=== PATIENT | female | born 1955 | race Caucasian/White ===

== ENCOUNTER 2022-12-14 21:54 | Emergency (ER) | payer MEDICARE, SELFPAY ==
--- NOTE | 2022-12-14 | ECG_ITS ---
Test Reason : CHEST PAIN Blood Pressure : / mmHG Vent. Rate : 074 BPM Atrial Rate : 074 BPM P-R Int : 164 ms QRS Dur : 086 ms QT Int : 410 ms P-R-T Axes : 009 -32 031 degrees QTc Int : 455 ms Normal sinus rhythm Left axis deviation Borderline ECG When compared with ECG of 06-JUL-2012 16:46, No significant change was found Referred By: Generic ED Physician Electronically Signed By:LACI SCOTT
--- NOTE | ~2022-12-14 | CT_ITS ---
EXAMINATION: CTA CHEST, ABDOMEN AND PELVIS CLINICAL INFORMATION: Reason for Exam ? Dissection COMPARISON: No pertinent prior studies are available for comparison. TECHNIQUE: Multidetector volumetric imaging was performed from the thoracic inlet through the pubic symphysis both before as well as following administration of 85 mL of Omnipaque 350. Sagittal and coronal reformatted images were obtained on the technologist's workstation. Additional 2-D coronal and sagittal reformatted images and axial 3-D maximum intensity projection MIP images are generated on the CT workstation. This CT examination was performed using dose optimization techniques as appropriate, variously including the following: *Automated exposure control *Adjustment of mA and/or kV according to patient size (this includes techniques or standardized protocols for targeted exams where dose is matched to indication/reason for exam; i.e. extremities or head) *Use of iterative reconstruction technique DLP: 708 mGy-cm VASCULAR FINDINGS: The thoracic aorta demonstrates mild calcific plaque without aneurysm, dissection or intramural hematoma. Normal three-vessel branching pattern of the arch is seen with widely patent great vessels. Although not carried out for evaluation of the pulmonary arteries or pulmonary veins, no abnormalities are seen. The abdominal aorta and visualized iliofemoral vessels all are unremarkable. The celiac SMA and JUAN are all widely patent. There are single renal arteries present bilaterally which are widely patent. NONVASCULAR FINDINGS: CHEST: Lung: There is a triangular opacity seen adjacent to the minor fissure in the right middle lobe consistent with a fissural lymph node (7:225). The lungs are otherwise clear without focal opacity or nodule. Mediastinum: The mediastinum is normal. The central vascular structures are unremarkable. No hilar or mediastinal lymphadenopathy. Coronary Artery Calcification: None visualized on this study. Pericardium/Pleura: No significant effusion. No pleural mass or thickening. Chest Wall/Axilla: Unremarkable ABDOMEN/PELVIS: Peritoneal Space: No significant free air or free fluid identified. Liver, Gallbladder, Biliary Tree: The liver is enlarged measuring 18.2 cm in cephalocaudad dimension. Multiple benign cysts are present the largest measuring about 14 cm. No focal hepatic lesion or biliary ductal dilatation is present. The gallbladder is unremarkable with no evidence of radiopaque gallstones, gallbladder wall thickening, or obvious pericholecystic inflammatory changes. Pancreas: Unremarkable Spleen: Unremarkable Adrenal Glands: Unremarkable Kidneys and Ureters: The kidneys are normal in size, shape, and attenuation. A Bosniak class I simple cyst is present in the right kidney at the upper pole with an additional smaller cyst present medially. These need no additional imaging or follow-up. No worrisome solid renal masses are seen. No hydronephrosis, hydroureter, or calculi seen. No perinephric stranding. Bladder: Unremarkable Gastrointestinal Tract: The small and large bowel are unremarkable. The appendix is unremarkable. Abdominal Wall: No significant hernia is appreciated. Lymph Nodes: No lymphadenopathy. PELVIC VISCERA: Normal anteverted uterus. There is a 4.5 cm benign simple ovarian cyst on the right. OSSEUS STRUCTURES: Mild degenerative changes are noted in the spine most marked at L5-S1. There is mild grade 1 anterolisthesis of L4 upon L5 . No bony destructive lesions are seen. CT/CT angio abdomen pelvis IMPRESSION: 1. No evidence of aortic dissection. 2. 4.5 cm simple appearing cyst. Given the patient's age, a follow-up pelvic ultrasound is recommended in 6-12 months. 3. Incidental note made of an enlarged liver with multiple benign cysts and degenerative changes in the spine. Fleischner guidelines were followed.
[2022-12-14 22:05] VITALS: BP 176/74; PULSE 65; RESP 18; TEMP 36.3; O2SAT 99; BMI 34.1
--- NOTE | 2022-12-14 22:26 | MHC.EDTECH ---
PT EKG DONE AND WAS READ BY PROVIDER ,BLOOD DRAWN AND SENT TO LAB ,PT WAS BROUGHT BACK TO ROOM 6 ,PT AT BEDSIDE .
[2022-12-14 22:28] LABS: MANUAL DIFF FLAG NO
[2022-12-14 22:29] LABS: Basophils Percent Auto 0.6 % (0-2); Eosinophils Absolute Auto 0.2 X10*3/uL (0.0-0.4); Eosinophils Percent Auto 4.2 % (0-4); Hematocrit 42.1 % (37.0-47.0); Hemoglobin 14.2 g/dl (12.0-16.0); Imm Gran Abs Auto 0.01 X10*3/uL (0.00-0.03); Imm Gran Pct Auto 0.2 % (0.0-0.4); Lymphocytes Absolute Auto 1.5 X10*3/uL (1.2-4.9); Lymphocytes Percent Auto 31.9 % (20-40); Mean Corpuscular HGB Conc 33.7 g/dl (31.0-35.0); Mean Corpuscular Hemoglobin 29.8 pg (27.0-33.0); Mean Corpuscular Volume 88.4 fL (80.0-98.0); Mean Platelet Volume 9.7 fL (9.4-12.3); Monocytes Absolute Auto 0.6 X10*3/uL (0.1-1.2); Monocytes Percent Auto 12.5 % (2-11); Neutrophils Absolute Auto 2.4 x10*3/uL (2.0-8.3); Neutrophils Percent Auto 50.6 % (45-73); Platelet Count 209 X10*3/uL (160-400); Red Blood Count 4.76 X10*6/uL (4.20-5.50); Red Cell Distribution Width 12.7 % (11.0-16.0); White Blood Count 4.7 X10*3/uL (4.8-10.8)
[2022-12-14 22:38] VITALS: BP 178/89; PULSE 66; RESP 11; O2SAT 98
[2022-12-14 22:53] LABS: Alanine Aminotransferase 14 U/L (0-31); Albumin Level 4.4 g/dL (3.5-5.0); Alkaline Phosphatase 45 U/L (39-117); Anion Gap 14 (12-20); Aspartate Amino Transferase 17 U/L (5-31); Bilirubin Total 0.4 mg/dL (0.0-1.0); Blood Urea Nitrogen 21 mg/dL (9-16); Calcium 9.3 mg/dL (8.4-10.2); Carbon Dioxide 24 mmol/L (22-29); Chloride 107 mmol/L (96-108); Creatinine Clr Calc Pharmacy 69.3; Estimated Glomerular Filt Rate > 60; Glucose Random 96 mg/dL (60-115); Potassium 4.3 mmol/L (3.3-5.1); Sodium 141 mmol/L (135-145); Total Protein 6.5 g/dL (6.5-8.0)
--- NOTE | 2022-12-14 22:54 | ED_ITS ---
HPI - Chest Pain General Chief Complaint: Chest Pain Stated Complaint: chect/ neck pain Time Seen by Provider: 12/14/22 22:25 History of Present Illness HPI narrative: Patient is a 67-year-old female presents today with having chest pain radiating to the back rating to the stomach area. Patient denies any history of diabetes, hypertension, high cholesterol, smoking, LA. Patient from home. No fever no chills no coughing or congestion or SOB symptoms. No diaphoresis. No history of blood clots. No history of leg swelling. Patient not on any hormonal replacement. She is from home. No recent travel. Related Data Home Medications Medication Instructions Recorded Confirmed escitalopram oxalate 5 mg tablet 5 mg PO DAILY 09/05/22 Allergies Allergy/AdvReac Type Severity Reaction Status Date / Time No Known Allergies Allergy Verified 12/14/22 22:05 Review of Systems Review of Systems: Positive chest pain Yes all other systems are reviewed and are negative PMFSH Past Medical History Attestation statement: The following information was validated with the patient. Social History Social History Advance Directives: No Advance Directives Information Provided: No Physical Exam Vital Signs: Vital Signs: Last Vital Signs Temp 97.4 F 12/14/22 23:50 Pulse 62 12/14/22 23:50 Resp 18 12/14/22 23:50 BP 145/66 H 12/14/22 23:50 Pulse Ox 98 12/14/22 23:50 O2 Del Method Room Air 12/14/22 22:38 BMI result Body Mass Index 34.1 Appearance: Alert. Oriented X3. No acute distress. Eyes: Pupils equal, round and reactive to light. ENT: Pharynx normal. Neck: Normal inspection. Neck supple. No lymph nodes noted. No crepitus CVS: Normal heart rate and rhythm. Pulses normal. Normal S1 and S2 Respiratory: No respiratory distress. Breath sounds normal. No Wheezing. No rales Abdomen: Soft and nontender. No rigidity. No distention. good BS x4 Skin: Skin warm and dry. Normal skin color. Normal skin turgor. Extremities: No lower extremity edema. Neurovascular intact to all extremities. No Lacerations. No Rash Neuro: Oriented X 3. No motor deficit. No sensory deficit. Moving all extermities. No slurred speech Medications Administered Discontinued Medications Generic Name Dose Route Start Last Admin Trade Name Yordy PRN Reason Stop Dose Admin Iohexol 85 ml 12/14/22 23:34 12/14/22 23:35 Iohexol 350 Mg/Ml 100 Ml Infus..Btl IV 12/14/22 23:35 85 ml ONCE ONE Administration Medical Decision Making Medical Decision Making [facility] Narrative: Patient complaining of chest pain going to the back. Elevated blood pressure here in the emergency department. It is sharp. CT scan of the chest abdomen pelvis was negative for any fracture no evidence for pneumonia pneumothorax no evidence for dissection. Patient had 2 sets of cardiac enzymes done. There were both negative. My interpretation patient's EKG showed a sinus pattern heart rate is 75 WA QRS QT within normal limits there is T-wave inversion in the inferior leads noted. She is well-appearing. The chest pain is atypical. Her EKG shows some abnormality she has no significant cardiac risk factors her heart score is a 3. Will have patient follow up with Cardiology on an outpatient basis. CTA did show an ovarian cyst which will need to be followed up. She is in stable condition. Differential Diagnosis ACS, dissection, pneumonia, pneumothorax Lab Data [facility] Lab Attestation statement: I reviewed the patient's lab results. 12/14/22 22:23 12/14/22 22:23 Labs: Lab Results 12/14/22 12/14/22 12/14/22 Range/Units 22:23 22:23 22:23 WBC 4.7 L (4.8-10.8) X10*3/uL RBC 4.76 (4.20-5.50) X10*6/uL Hgb 14.2 (12.0-16.0) g/dl Hct 42.1 (37.0-47.0) % MCV 88.4 (80.0-98.0) fL MCH 29.8 (27.0-33.0) pg MCHC 33.7 (31.0-35.0) g/dl RDW 12.7 (11.0-16.0) % Plt Count 209 (160-400) X10*3/uL MPV 9.7 (9.4-12.3) fL Immature Gran % (Auto) 0.2 (0.0-0.4) % Neut % (Auto) 50.6 (45-73) % Lymph % (Auto) 31.9 (20-40) % Logan % (Auto) 12.5 H (2-11) % Eos % (Auto) 4.2 H (0-4) % Baso % (Auto) 0.6 (0-2) % Lymph # (Auto) 1.5 (1.2-4.9) X10*3/uL Logan # (Auto) 0.6 (0.1-1.2) X10*3/uL Eos # (Auto) 0.2 (0.0-0.4) X10*3/uL Baso # (Auto) 0.0 (0.0-0.2) X10*3/uL Abs Immat Gran (auto) 0.01 (0.00-0.03) X10*3/uL Absolute Neuts (auto) 2.4 (2.0-8.3) x10*3/uL Absolute Nucleated RBC 0.000 (0.0-0.012) X10*3/uL Nucleated RBC % (auto) 0.0 (0.0-0.2) /100WBC Sodium 141 (135-145) mmol/L Potassium 4.3 (3.3-5.1) mmol/L Chloride 107 (96-108) mmol/L Carbon Dioxide 24 (22-29) mmol/L Anion Gap 14 (12-20) BUN 21 H (9-16) mg/dL Creatinine 0.90 (0.5-1.4) mg/dL Estim Creat Clear Calc 69.3 Estimated GFR > 60 Random Glucose 96 (60-115) mg/dL Calcium 9.3 (8.4-10.2) mg/dL Total Bilirubin 0.4 (0.0-1.0) mg/dL AST 17 (5-31) U/L ALT 14 (0-31) U/L Alkaline Phosphatase 45 (39-117) U/L Troponin I High Sens 3.5 (<3.5-17.0) ng/L Total Protein 6.5 (6.5-8.0) g/dL Albumin 4.4 (3.5-5.0) g/dL Lipase 35 (8-78) U/L Urine Color Urine Appearance Urine pH (5.0-9.0) Ur Specific Sunburst (1.005-1.025) Urine Protein (Neg-Trace) mg/dL Urine Glucose (UA) (Negative) mg/dL Urine Ketones (Negative) mg/dL Urine Blood (Negative) Urine Nitrite (Negative) Ur Leukocyte Esterase (Negative) Urine RBC (0-2) /HPF Urine WBC (0-5) /HPF Ur Squamous Epith Cells (0-2) /HPF Calcium Oxalate Crystal Urine Bacteria (None Seen) Hyaline Casts (0-2) /LPF 12/15/22 12/15/22 Range/Units 00:42 00:42 WBC (4.8-10.8) X10*3/uL RBC (4.20-5.50) X10*6/uL Hgb (12.0-16.0) g/dl Hct (37.0-47.0) % MCV (80.0-98.0) fL MCH (27.0-33.0) pg MCHC (31.0-35.0) g/dl RDW (11.0-16.0) % Plt Count (160-400) X10*3/uL MPV (9.4-12.3) fL Immature Gran % (Auto) (0.0-0.4) % Neut % (Auto) (45-73) % Lymph % (Auto) (20-40) % Logan % (Auto) (2-11) % Eos % (Auto) (0-4) % Baso % (Auto) (0-2) % Lymph # (Auto) (1.2-4.9) X10*3/uL Logan # (Auto) (0.1-1.2) X10*3/uL Eos # (Auto) (0.0-0.4) X10*3/uL Baso # (Auto) (0.0-0.2) X10*3/uL Abs Immat Gran (auto) (0.00-0.03) X10*3/uL Absolute Neuts (auto) (2.0-8.3) x10*3/uL Absolute Nucleated RBC (0.0-0.012) X10*3/uL Nucleated RBC % (auto) (0.0-0.2) /100WBC Sodium (135-145) mmol/L Potassium (3.3-5.1) mmol/L Chloride (96-108) mmol/L Carbon Dioxide (22-29) mmol/L Anion Gap (12-20) BUN (9-16) mg/dL Creatinine (0.5-1.4) mg/dL Estim Creat Clear Calc Estimated GFR Random Glucose (60-115) mg/dL Calcium (8.4-10.2) mg/dL Total Bilirubin (0.0-1.0) mg/dL AST (5-31) U/L ALT (0-31) U/L Alkaline Phosphatase (39-117) U/L Troponin I High Sens 3.4 (<3.5-17.0) ng/L Total Protein (6.5-8.0) g/dL Albumin (3.5-5.0) g/dL Lipase (8-78) U/L Urine Color Yellow Urine Appearance Clear Urine pH 5.5 (5.0-9.0) Ur Specific Sunburst 1.020 (1.005-1.025) Urine Protein Negative (Neg-Trace) mg/dL Urine Glucose (UA) Negative (Negative) mg/dL Urine Ketones Negative (Negative) mg/dL Urine Blood Negative (Negative) Urine Nitrite Negative (Negative) Ur Leukocyte Esterase Small (1+) H (Negative) Urine RBC 0-2 (0-2) /HPF Urine WBC 0-5 (0-5) /HPF Ur Squamous Epith Cells 0-2 (0-2) /HPF Calcium Oxalate Crystal Present Urine Bacteria None Seen (None Seen) Hyaline Casts 0-2 (0-2) /LPF Independent Interpretation I performed an independent interpretation of an: EKG Interpretation: Sinus heart rate is 75 WA QRS QTC within normal limits there is T-wave inversions over the inferior leads there is no acute ST segment elevation noted. Independent Historian Clinical information obtained from an independent historian. History obtained from or confirmed by: Spouse Discharge Plan Discharge Clinical Impression: Chest pain Patient Disposition: Home, Self-Care Instructions: Chest Pain (DC) Additional Instructions: Ovarian cyst was noted. Please follow-up with your surgical scrub technician on an outpatient basis Prescriptions: No Action escitalopram oxalate 5 mg tablet 5 mg PO DAILY Referrals: Med Maynard MD [Primary Care Provider] - Dk Mcclendon MD [Physician] - 12/17/22
[2022-12-14 23:00] LABS: Troponin-I High Sensitivity 3.5 ng/L (<3.5-17.0)
[2022-12-14 23:03] LABS: Lipase 35 U/L (8-78)
[2022-12-14] MEDS: iohexoL 350 MG/ML 100 ML INFUS..BTL 85 ML IV (23:35)
[2022-12-14 23:50] VITALS: BP 145/66; PULSE 62; RESP 18; TEMP 36.3; O2SAT 98
[2022-12-15 00:50] LABS: Appearance Urine Clear; Color Urine Yellow; Glucose Urine UA Negative (Negative); Leukocyte Esterase Urine Small (1+) (Negative); Nitrite Urine Negative (Negative); PH 5.5 (5.0-9.0); UMIC TRIGGER UACC YES; Urine Blood Negative (Negative); Urine Ketones Negative (Negative); Urine Protein Negative (Neg-Trace)
[2022-12-15 01:06] LABS: Bacteria Urine None Seen (None Seen); Calcium Oxalate Crystals Urine Present; Hyaline Casts Urine 0-2 /LPF (0-2); RBC Urine 0-2 /HPF (0-2); Squamous Epithelial Cell Urine 0-2 /HPF (0-2); UACC Culture Trigger YES; WBC Urine 0-5 /HPF (0-5)
[2022-12-15 01:10] LABS: Troponin-I High Sensitivity 3.4 ng/L (<3.5-17.0)
== END 2022-12-15 01:49 | disposition home or self-care (01) ==
PROVIDERS: Emergency Provider Emergency Medicine Emergency Medical Services; PCP Internal Medicine
DX: R07.89 Other chest pain (principal); M54.2 Cervicalgia; Z79.899 Other long term (current) drug therapy
CPT/HCPCS: 36415; 71275; 74174; 80053; 81001; 83690; 84484; 85025; 87086; 93005; 99283; Q9967

== ENCOUNTER 2025-06-22 08:54 | Outpatient (AMB) | payer MEDICARE, SELFPAY ==
--- OUTSIDE RECORDS SUMMARY | 2024-09-19 05:00 | XMS_ITS ---
Author Organization [facility], [place] Address [address] [place] [address] Care Team Providers Care Solar Project Manager Name Role Phone Migration, Provider Unavailable Unavailable REASON FOR VISIT CPX Encounters Encounter Location Date Provider Diagnosis [facility], [address] [place] [phone] 09/19/2024 Provider Migration Plan Of Treatment Next Appt Details Provider Name:Carol Centeno, 07/14/2025 11:00:00 AM, [address] [place] [address], Suite [facility], [place], [address], [phone] Progress Notes * JUAN J HAYESDOB:1955 (70 yo F)Acc No.[id number]:09/19/2024 Progress Notes Patient: Jess JUAN J TURCIOS Provider: Michel Franco :1955 A ge:69 Y S ex:Female Date:09/19/2024 Address: [id number] Subjective: * Chief Complaints: * C PX * Ocular Surgical History: Objective: Vision Examination: * Electronic signature of Prov ider Migration on 06/22/2025 at 09:26 AM EDT Sign off status: Pending * Provider: Michel arriaga Migration Date: Generated for Keshav yoo/Negro/eTransmitting on: 09:26 AM EDT
--- OUTSIDE RECORDS SUMMARY | 2025-06-05 06:30 | XMS_ITS ---
Author Organization [facility], [place] Address [address] [place] [address] Care Team Providers Care Tool And Die Engineer Name Role Phone Carol Centeno Unavailable [phone] Allergies No Known Allergies REASON FOR VISIT My insurance and Francesca keep telling me that I'm due for a physical Medications Medication SIG (Take, Route, Frequency, Duration) Notes Start Date End Date Status Macrobid 100 MG Capsule 1 capsule with f ood Orally every 12 hrs Not-Taking Lexapro 5 MG Tablet 1 tablet Orally Once a day Not-Taking Gabapentin 300 MG Capsule 1 capsule Orally Once a day Not-Taking Ativan 0.5 MG Tablet 1 tablet at bedtime as needed Orally Once a day Not-Garth ing Social History Section Notes: Alcohol- Occasionally No drug, alcohol or caffeine Vital Signs Blood pressure systolic 160 mm Hg 06/05/20 25 Blood pressure diastolic 88 mm Hg 025 Heart Rate 69 /min 06/05/2025 Respiratory Rate 19 /min 06/05/2025 Weight 221 lbs 06/05/2025 Oximetry 98 % 06/05/2025 Weight-kg 100.24 kg 06/05/2025 Encounters Encounter Location Date Provider Diagnosis [facility] [place] [address] [facility] [address] [place] [address] 06/05/2025 Carol Guillermojazzy Palpitations R00.2 Assessments Encounter Date Diagnosis (ICD Code) Assessment Notes Treatment Notes Treatment Clinical Notes Section Notes 06/05/2025 Palpitations (ICD-10 - R00.2) EKG done here and notes NSR w/ Left axis but otherwise normal EKG. Plan Of Treatment Treatment Notes Assessment Notes Palpitations EKG done here and no harsha NSR w/ Left axis but otherwise normal EKG. Next Appt Details Provider Name:Angi Matson/24/2025 11:00:00 AM, [address] [facility], [address], [place], [address], [phone] History and Physical Notes * HPI (History of Present Illness) Category Sub-Category Detail Notes Category Not es General Pt is a 70yo female w/ past medical hx of shingles and depression (she notes both have resolved) who presents today for an annual Medical history and physical. Please note the following: - Patient reports experiencing occasional jitters and palpitations. - Right-sided pain attributed to past shingles, lasting five years. - Occasional involuntary tremors noted when doing physical activities. - Concern about neurological symptoms such as head shaking noticed by children. - History of large cyst removal from the liver. - Reports of tight muscles causing discomfort. - Concerns about palpitations and family history of similar issues without the presence of Parkinson's. - Used to take Lexapro due to anxiety related to mother's . - History of ulcerative colitis currently in remission. - Not currently taking any medications. - No current OBGYN visits. - Cataract surgery scheduled next month. - Last mammogram taken a few months ago. - Recently had a colonoscopy. - EKG done here and notes NSR w/ Left axis but otherwise normal EKG. She c/o B/L hand and head tremors and mid-back pain bilaterally. Pt denies fever, chills, dizziness, GOLDSTEIN, SOB, cough, chest pain and abdominal pain/sx. Objective: - BP: 160/88 mmHg. - HR: 69 bpm. - Bilateral eardrums clear with no signs of infection. - Heart and lung sounds normal with no added sounds. - Abdomen soft, non-tender during palpation. - No reported or observed back pain on examination. - Normal strength and movement in arms and legs. - No signs of anemia, diabetes, or thyroid issues according to recent labs. Assessment: - Essential tremor - Palpitations - Right-sided postherpetic neuralgia - History of ulcerative colitis (in remission) - Anxiety (currently without medication) - Hypertension Plan: - Refer to Neurology for assessment of tremors and related neurological symptoms. - Refer to Cardiology for evaluation of palpitations and possible medication. - Schedule EKG to assess heart function before the patient leaves. - Recommend wearing looser clothing to help alleviate right-sided pain. - Obtain recent mammogram and colonoscopy results. - Plan for cataract surgery on previously scheduled date. - Blood work to include checks for diabetes, liver, kidney function, thyroid, anemia, cholesterol, vitamin B12 and D, and magnesium levels. - Schedule follow-up appointment in one month for pre-op. - Discuss possible pain management options for postherpetic neuralgia if symptoms worsen. Progress Notes * JUAN J HAYESDOB:1955 (70 yo F)Acc No.[id number]:06/05/2025 Progress Notes Patient: JUAN J GREGG Provider: Whit Centeno :1955 A ge:70 Y S ex:Female Date:06/05/2025 Address: [id number] Subjective: * Chief Complaints: * My insurance and Francesca keep telling me that I'm due for a physical * HPI: G eneral: Pt is a 70yo female w/ past medical hx of shingles and depression (she notes both have resolved) who presents today for an annual Medical history and physical. Please note the following: - Patient reports experiencing occasional jitters and palpitations. - Right-sided pain attributed to past shingles, lasting five years. - Occasional involuntary tremors noted when doing physical activities. - Concern about neurological symptoms such as head shaking noticed by children. - History of large cyst removal from the liver. - Reports of tight muscles causing discomfort. - Concerns about palpitations and family history of similar issues without the presence of Parkinson's. - Used to take Lexapro due to anxiety related to mother's . - History of ulcerative colitis currently in remission. - Not currently taking any medications. - No current OBGYN visits. - Cataract surgery scheduled next month. - Last mammogram taken a few months ago. - Recently had a colonoscopy. - EKG done here and notes NSR w/ Left axis but otherwise normal EKG. She c/o B/L hand and head tremors and mid-back pain bilaterally. Pt denies fever, chills, dizziness, GOLDSTEIN, SOB, cough, chest pain and abdominal pain/sx. Objective: - BP: 160/88 mmHg. - HR: 69 bpm. - Bilateral eardrums clear with no signs of infection. - Heart and lung sounds normal with no added sounds. - Abdomen soft, non-tender during palpation. - No reported or observed back pain on examination. - Normal strength and movement in arms and legs. - No signs of anemia, diabetes, or thyroid issues according to recent labs. Assessment: - Essential tremor - Palpitations - Right-sided postherpetic neuralgia - History of ulcerative colitis (in remission) - Anxiety (currently without medication) - Hypertension Plan: - Refer to Neurology for assessment of tremors and related neurological symptoms. - Refer to Cardiology for evaluation of palpitations and possible medication. - Schedule EKG to assess heart function before the patient leaves. - Recommend wearing looser clothing to help alleviate right-sided pain. - Obtain recent mammogram and colonoscopy results. - Plan for cataract surgery on previously scheduled date. - Blood work to include checks for diabetes, liver, kidney function, thyroid, anemia, cholesterol, vitamin B12 and D, and magnesium levels. - Schedule follow-up appointment in one month for pre-op. - Discuss possible pain management options for postherpetic neuralgia if symptoms worsen. * Surgical History: knee surgery (both needs) cyst removal (liver) * Ocular Surgical History: * Family History: F ather: , diagnosed with Type 2 diabetes mellitus without complication, unspecified whether care home insulin use. M other: , diagnosed with Heart disease. 6 brother(s) - healthy. 3 son(s) , 2 daughter(s) - healthy. . Healthcare Proxy ( Kevin) Dad- Liver cancer Mom- Afib, pacemaker, CHD. * Social History: A lcohol- Occasionally No drug, alcohol or caffeine. * Medications: N ot-TakingMacrobid 100 MG Capsule 1 capsule with food Orally every 12 hrs Lexapro 5 MG Tablet 1 tablet Orally Once a day Gabapentin 300 MG Capsule 1 capsule Orally Once a day Ativan 0.5 MG Tablet 1 tablet at bedtime as needed Orally Once a day Not- Taking Macrobid 100 MG Capsule 1 capsule with food Orally every 12 hrs Not-Taking Lexapro 5 MG Tablet 1 tablet Orally Once a day Not-Taking Gabapentin 300 MG Capsule 1 capsule Orally Once a day Not-Taking Ativan 0.5 MG Tablet 1 tablet at bedtime as needed Orally Once a day * Allergies: N .K.D.A.yesAllergies Verified. Objective: * Vitals: B P:160/88mm Hg, HR:69/min, RR:19/min, Oxygen sat %:98%, Wt:221lbs, Wt-k.24 kg. Vision Examination: Assessment: * Assessment: 1. P alpitations - R00.2 (Primary) Plan: * Treatment: * Electronic signature of Arnaldo Centeno on 06/22/2025 at 09:27 AM EDT Sign off status: Pending * Provider: Whit Centeno Date: 0 06/05/2025 Generated for Keshav yoo/Negro/Adela on: 1 09:27 AM EDT
--- OUTSIDE RECORDS SUMMARY | 2025-06-09 12:30 | XMS_ITS ---
Author Organization [facility], [place] Address [address] [place] [address] Care Team Providers Care Junior Qa Analyst Name Role Phone Carol Centeno Unavailable [phone] REASON FOR VISIT abn labs Medications Medication SIG (Take, Route, Frequency, Duration) Notes Start Date End Date Status Ativan 0.5 MG Tablet 1 tablet at bedtime as needed Orally Once a day Not-Garth ing Gabapentin 300 MG Capsule 1 capsule Orally Once a day Not-Taking Lexapro 5 MG Tablet 1 tablet Orally Once a day Not-Taking Macrobid 100 MG Capsule 1 capsule with f ood Orally every 12 hrs Not-Taking Encounters Encounter Location Date Provider Diagnosis [facility], [address] [place] [phone] 06/09/2025 Carolher Centeno Plan Of Treatment Next Appt Details Provider Name:Carol Centeno, 07/14/2025 11:00:00 AM, [address] [place] [address], Suite [facility], [place], [address], [phone] Progress Notes * JUAN J HAYESDOB:1955 (70 yo F)Acc No.[id number]:06/09/2025 Patient: Jess JUAN J TURCIOS Provider: Whit Centeno :1955 A ge:70 Y S ex:Female Date:06/09/2025 Address:[id number] Subjective: * Chief Complaints: * A bn labs * Medications: N ot-TakingMacrobid 100 MG Capsule [...] as needed Orally Once a day * Electronic signature of Arnaldo her Centeno on 06/22/2025 at 09:26 AM EDT Sign off status: Pending * Provider: Whit Centeno Date: 0 06/09/2025 Generated for Keshav yoo/Negro/Adela on: 1 09:26 AM EDT
--- NOTE | 2025-06-22 08:58 | AM.OFFWIN_ITS ---
Intake Vital Signs 06/22/25 08:59 Height 5 ft 5 in Weight 220 lb BMI 36.6 BP 162/86 H Blood Pressure Location Lt brachial Position Sitting Pulse 70 Pulse Source Pulse Oximeter Temp 98.3 F Temp Source Oral Pulse Oximetry (%) 98 Oxygen Delivery Method Room Air Intake Visit Reasons: EP-rt foot pain & swollen Intake Note: pt presents with right foot swelling and pain for 2 days- denies injury Allergies No Known Allergies Allergy (Verified 06/22/25 09:00) Do you need a note to return to daycare/school/sports/work: No HPI HPI Comments History of Present Illness Details History of Present Illness - The patient is a 70-year-old female pr esenting with foot pain and numbness. - Reports inability to put pressure on h er right foot, with pain initially localized to the heel and later radiating to the side, accompanied by numbness on the top of the foot. - Chronic numbness on the bottom of her feet is noted. - Pain is worse with weight bearing and standing on the right heel. - Her foot felt worse walking barefoot a nd better in a shoe. - History of two knee replacements with nerve block injections causing previous numbness in legs. - No prior x-ray of the foot to rule out a bone spur, suspected to cause pain and inability to flex the foot. - She has no recent trauma or falls. - She has no redness, warmth, wounds, an kle pain, or calf pain. Physical Exam General: Cooperative, healthy appearing, comfortable, no acute distress and well developed Orientation: Patient oriented x3 Respiratory: Normal respiratory effort and able to speak in complete sentences. Clear to auscultation bilaterally Cardiovascular: Regular rate and rhythm. Normal S1 and S2 Skin: No rashes or lesions noted Neuro: Sensation is intact. Extremities: Normal to inspection. No redness or swelling observed. FROM of the right ankle and digits on the foot. No TTP of the Achilles on the right, plantar fascia, or forefoot. TTP of the calcaneous on the right. Patient was informed and verbally consented to the use of an ambient scribe for clinic note documentation during this visit. Review of Systems Const All systems reviewed & are unremarkable except as noted in HPI and below Physical Exam Vital Signs: Last Vital Signs Temp 98.3 F 06/22/25 08:59 Pulse 70 06/22/25 08:59 BP 162/86 H 10/02/25 08:59 Pulse Ox 98 06/22/25 08:59 Oxygen Delivery Method Room Air 06/22/25 08:59 BMI result Body Mass Index 36.6 Results Reviewed Results Reviewed: Reviewed the x-ray in the office FINDINGS: No acute cortical disruption. There is a medial deviation and likely flexed position of the fourth and fifth toes. Small plantar calcaneal spur. No lytic or blastic lesions. No joint effusion. No metallic or radiopaque foreign body. No subcutaneous emphysema. XR/XR foot RT min 3V IMPRESSION: Hammertoe deformities, fourth and fifth toes. Assessment & Plan Assessment & Plan (1) Right foot pain: Code(s): M79.671 - Pain in right foot Plan Differential diagnosis includes neuropathy, bone spur, arthritis, or tendinitis. Unlikely gout plan - Plan to obtain an x-ray of the foot to evaluate for bone spur or other structural abnormalities. - Consideration of supportive footwear to alleviate symptoms. - rest and elevate the foot - wear the supportive shoe - pt is requesting a uric acid to r/o gout - motrin as needed for pain - will need a referral to ortho or podiatry - follow up with PCP Orders: Orders Uric Acid Today M79.671 - Pain in right foot XR foot RT min 3V Today M79.671 - Pain in right foot Coding Level of Care Code Est Pt Level 4 (52270) Diagnoses Right foot pain M79.671
[2025-06-22 08:59] VITALS: BP 162/86; PULSE 70; TEMP 36.8; O2SAT 98; BMI 36.6
--- OUTSIDE RECORDS SUMMARY | 2025-06-22 09:26 | XMS_ITS ---
Author Name [facility] Organization Unknown Encounters Encounter Type Encounter Reason Primary Diagnosis Location Date Ambulatory [facility] 07/19/2024 Care Team Organization Name Specialty Phone Email Start Date End Da te [facility] 01/14/2025 [facility] 04/07/2024 [facility] 02/27/2023
--- OUTSIDE RECORDS SUMMARY | 2025-06-22 09:27 | XMS_ITS | Patient Health Record ---
Author Organization [facility] [place] Address [address] [place] [address] Care Team Providers Care Commercial Installer Name Role Phone Migration, Provider Unavailable Unavailable Carol Centeno Unavailable [phone] Allergies No Known Allergies Reason For Referral No Information Medications Medication SIG (Take, Route, Frequency, Duration) [...] f ood Orally every 12 hrs Not-Taking Social History Section Notes: Alcohol- Occasionally No drug, alcohol or caffeine Vital Signs Heart Rate 69 /min 06/05/2025 Respiratory Rate 19 /min 06/05/2025 Oximetry 98 % 06/05/2025 Blood pressure diastolic 88 mm Hg 06/05/2025 Weight-kg 100.24 kg 06/05/2025 Blood pressure systolic 160 mm Hg 06/05/2025 Weight 221 lbs 06/05/2025 Encounters Encounter Location Date Provider Diagnosis [facility], [address] [address] 09/19/2024 Provider Migration [facility], [address] [address] 06/05/2025 Carol Centeno Palpitations R00.2 [facility], [address] [address] 06/09/2025 Carol Centeno Assessments Encounter Date Diagnosis (ICD Code) Assessment Notes Treatment Notes Treatment Clinical Notes Section Notes 06/05/2025 Palpitations (ICD-10 - R00.2) EKG done here and notes NSR w/ Left axis but otherwise normal EKG. Plan Of Treatment Next Appt Details Provider Name:Carol Centeno, 07/14/2025 11:00:00 AM, [address], [address], [place], [address], [phone] Insurance Providers Payer Name Payer Address Payer Phone Subscriber Number Group Number Insured Name Patient Relationship to Insured Coverage Start Date Coverage End Date [employer] [address] [place] [address] [id number] JUAN J HAYES Self - patient is the insured [employer] [address] [place] [address] [id number] JUAN J HAYES Self - patient is the insured Medical (General) History Surgical History Surgery Date(Month/Year) knee surgery (both needs) cyst removal (liver)
--- OUTSIDE RECORDS SUMMARY | 2025-06-22 09:27 | XMS_ITS | Clinical Summary ---
Author Organization [facility] [address] [facility] Address [address] [place] [address] Phone Care Team Providers Care Talent Program Manager Name Role Phone Isac Maynard MD Primary Care Provider [phone] Allergies No known active allergies Medications No known medications Surgical History Surgery Date Site/Laterality Comments SECTION PROCEDURE: [place] DELIVERY ONLY Medical History Medical History Date Comments Ulcerative (chronic) enteroc olitis ([facility] V24, [facility] V28) 03/11/2007 DX:Ulcerative (chronic) ent erocolitis ([facility]); COMMENT: follows with Dr. foster regularly Family History Medical History Relation Name Comments Breast cancer Cousin Breast cancer Father's Sister 1 Breast cancer Father's Sister 2 Breast cancer Father's Sister 3 Relation Name Status Comments Cousin Alive Father's Sister 1 Alive Father's Sister 2 Alive Father's Sister 3 Alive Social History Tobacco Use Types Packs/Day Years Used Date Smoking Tobacco: Former Cigarettes Q uit: 01/15/1983 Alcohol Use Standard Drinks/Week Comments Not Currently 0 (1 standard drink = 0.6 oz pur e alcohol) Interpersonal Safety Answer Date Record ed Physical Abuse Unrecognized value 11/17/2024 Verbal Abuse Unrecognized value 11/17/2024 Comments No Sex and Gender Information Value Date Recorded Sex Assigned at Female 11/16/2024 12:17 PM EST Legal Sex Female 7:41 AM EST Gender Identity Female 11/16/2024 11:27 AM EST Sexual Orientation Choose not to disclose 2024 9:05 AM EST Obstetrics History Para Term AB IAB SAB Ectopic Multiple Livin g Live Births 5 Last Filed Vital Signs Vital Sign Reading Time Taken Comments Blood Pressure 145/84 11/17/2024 11:07 AM EST Pulse 69 11/17/2024 11:07 AM EST Temperature 36.7 C (98 F) 11/17/2024 9:45 AM EST Respiratory Rate 16 11/17/2024 11:07 AM EST Oxygen Saturation 100% 11/17/2024 11:07 AM EST Inhaled Oxygen Concentration - - Weight 95.3 kg (210 lb) 02/28/2025 1:03 PM EDT Height 165.1 cm (5' 5 ) 02/28/2025 1:03 PM EDT Body Mass Index 34.95 02/28/2025 1:03 PM EDT Plan of Treatment Health Maintenance Due Date Last Done Comments Diabetes: Annual Foot Exam 01/31/1966 Diabetes: Annual Retina Eye Exam 01/31/1966 DTaP,Tdap,and Td Vaccines (1 - Tdap) 01/31/1975 Hepatitis A Vaccines (1 of 2 - Risk 2-dose series) 01/31/1975 Pneumococcal Vaccine: 50+ Years (1 of 2 - PCV) 01/31/1975 Zoster Vaccines (1 of 2) 01/31/2006 Hepatitis B Vaccines (1 of 3 - Risk 3-dose series) 2016 RSV Immunization Adult Patients (1 - Risk 60-74 years 1-dose series) 2016 Hepatitis C Screening 08/24/2022 Medicare Annual Wellness Visit 08/24/2022 Social Influencers of Health Screening 08/24/2022 Depression Screening 09/21/2024 COVID-19 Vaccine ( season) 2025 02/02/2021, 01/12/2021 Influenza Vaccine (#1) 2025 06/07/2009 Diabetes: Annual Urine Albumin-Creatinine Ratio (uACR) 06/06/2025 Falls Risk Assessment 11/17/2025 11/17/2024 Diabetes: Blood Sugar Control Test (HGBA1C) 12/04/2025 06/06/2025 Diabetes: Annual GFR (Glomerular Filtration Rate) 06/06/2026 06/06/2025 Hypertension/CHF/CAD Annual BMP Blood Test 06/06/2026 06/06/2025 Breast Cancer Screening 02/28/2027 02/29/20 25, 10/13/2023, 10/07/2022, Additional history exists Cholesterol Screening (Lipid Panel) 06/06/2030 06/06/2025 Osteoporosis Screening (Bone Density Screening) 09/05/2031 09/05/2021, 07/07/2019 Colorectal Cancer Screening: Colonoscopy 11/17/2034 11/17/2024, 11/16/2024 HIB Vaccines Aged Out No longer eligi ble based on patient's age to complete this topic HPV Vaccines Aged Out No longer eligi ble based on patient's age to complete this topic IPV Vaccines Aged Out No longer eligi ble based on patient's age to complete this topic MMR Vaccines Aged Out No longer eligi ble based on patient's age to complete this topic Meningococcal ACWY Vaccine Aged Out N o longer eligible based on patient's age to complete this topic Meningococcal B Vaccine Aged Out No l onger eligible based on patient's age to complete this topic RSV Immunization Patients Under 20 months Aged Out No longer eligible based on patient's age to complete this topic Varicella Vaccines Aged Out No longer eligible based on patient's age to complete this topic Procedures Procedure Name Priority Date/Time Associated Diagnosis Comments RIOS URINE CULTURE TUBE Routine 06/06/2025 8:58 AM EDT Diabetes mellitus ([facility] V24, [facility] V28) Vitamin B12 deficiency anemia Encounter for general adult medical examination with abnormal findings Avitaminosis D Hyperlipidemia Magnesium deficiency Genitourinary symptoms Primary hypothyroidism URINALYSIS WITH REFLEX MICROSCOPIC AND CULTURE Routine 06/06/2025 8:58 AM EDT Diabetes mellitus ([facility] V24, [facility] V28) Vitamin B12 deficiency anemia Encounter for general adult medical examination with abnormal findings Avitaminosis D Hyperlipidemia Magnesium deficiency Genitourinary symptoms Primary hypothyroidism URINALYSIS WITH REFLEX MICROSCOPIC AND CULTURE Routine 06/06/2025 8:58 AM EDT Diabetes mellitus ([facility] V24, [facility] V28) Vitamin B12 deficiency anemia Encounter for general adult medical examination with abnormal findings Avitaminosis D Hyperlipidemia Magnesium deficiency Genitourinary symptoms Primary hypothyroidism CULTURE URINE Routine 06/06/2025 8:58 AM EDT Diabetes mellitus ([facility] V24, [facility] V28) Vitamin B12 deficiency anemia Encounter for general adult medical examination with abnormal findings Avitaminosis D Hyperlipidemia Magnesium deficiency Genitourinary symptoms Primary hypothyroidism VITAMIN D 25 HYDROXY Routine 06/06/2025 8:48 AM EDT Diabetes mellitus ([facility] V24, [facility] V28) Vitamin B12 deficiency anemia Encounter for general adult medical examination with abnormal findings Avitaminosis D Hyperlipidemia Magnesium deficiency Genitourinary symptoms Primary hypothyroidism THYROID STIMULATING HORMONE Routine 06/06/2025 8:48 AM EDT Diabetes mellitus ([facility] [place] V24, [facility] [place] [facility] V28) Vitamin B12 deficiency anemia Encounter for general adult medical examination with abnormal findings Avitaminosis D Hyperlipidemia Magnesium deficiency Genitourinary symptoms Primary hypothyroidism MAGNESIUM Routine 06/06/2025 8:48 AM EDT Diabetes mellitus ([facility] [place] V24, [facility] [place] V28) Vitamin B12 deficiency anemia Encounter for general adult medical examination with abnormal findings Avitaminosis D Hyperlipidemia Magnesium deficiency Genitourinary symptoms Primary hypothyroidism HEMOGLOBIN A1C Routine 06/06/2025 8:48 AM EDT Diabetes mellitus ([facility] [place] V24, [facility] [place] V28) Vitamin B12 deficiency anemia Encounter for general adult medical examination with abnormal findings Avitaminosis D Hyperlipidemia Magnesium deficiency Genitourinary symptoms Primary hypothyroidism VITAMIN B12 Routine 06/06/2025 8:48 AM EDT Diabetes mellitus ([facility] [place] V24, [facility] [place] V28) Vitamin B12 deficiency anemia Encounter for general adult medical examination with abnormal findings Avitaminosis D Hyperlipidemia Magnesium deficiency Genitourinary symptoms Primary hypothyroidism COMPLETE BLOOD COUNT Routine 06/06/2025 8:48 AM EDT Diabetes mellitus ([facility] [place] V24, [facility] [place] V28) Vitamin B12 deficiency anemia Encounter for general adult medical examination with abnormal findings Avitaminosis D Hyperlipidemia Magnesium deficiency Genitourinary symptoms Primary hypothyroidism THYROXINE FREE Routine 06/06/2025 8:48 AM EDT Diabetes mellitus ([facility] [place] V24, [facility] [place] V28) Vitamin B12 deficiency anemia Encounter for general adult medical examination with abnormal findings Avitaminosis D Hyperlipidemia Magnesium deficiency Genitourinary symptoms Primary hypothyroidism LIPID PANEL WITH REFLEX TO DIRECT LDL Routine 06/06/2025 8:48 AM EDT Diabetes mellitus ([facility] [place] V24, [facility] [place] V28) Vitamin B12 deficiency anemia Encounter for general adult medical examination with abnormal findings Avitaminosis D Hyperlipidemia Magnesium deficiency Genitourinary symptoms Primary hypothyroidism COMPREHENSIVE METABOLIC PANEL Routine 06/06/2025 8:48 AM EDT Diabetes mellitus ([facility] [place] V24, [facility] [place] V28) Vitamin B12 deficiency anemia Encounter for general adult medical examination with abnormal findings Avitaminosis D Hyperlipidemia Magnesium deficiency Genitourinary symptoms Primary hypothyroidism MG MAMMO DIGITAL SCREENING W JARETH BILAT Routine 02/28/2025 1:21 PM EDT Encounter for screening mammogram for breast cancer COLONOSCOPY Routine 11/17/2024 10:46 AM EST Personal history of other colon polyps SU DEXA AXIAL SKELETON Routine 09/05/2021 3:17 PM EST Asymptomatic menopausal state from Last 3 Months or Most Recently Relevant to Health Maintenance Results * (ABNORMAL) Urinalysis with reflex microscopic and culture (06/06/2025 8:58 AM EDT) Specific [place] Urine 1.018 1.003 - 1.030 LAB URINALYSIS - AUTOMATED METHOD 06/06/2025 9:28 AM T [facility] pH, Urine 6.5 5.0 - 8.0 pH LAB URINALYSIS - AUTOMATED METHOD 06/06/2025 9:28 AM [facility] Leukocytes, Urine Small(A) Negative LAB URINALYSIS - AUTOMATED METHOD 06/06/2025 9:28 AM [facility] Nitrite, Urine Negative Negative LAB URINALYSIS - AUTOMATED METHOD 06/06/2025 9:28 AM [facility] Protein, Urine Negative <=Trace mg/dL LAB URINALYSIS - AUTOMATED METHOD 06/06/2025 9:28 AM [facility] Glucose, Urine Negative Negative mg/dL LAB URINALYSIS - AUTOMATED METHOD 06/06/2025 9:28 AM [facility] Ketones, Urine Negative Negative mg/dL LAB URINALYSIS - AUTOMATED METHOD 06/06/2025 9:28 AM [facility] Urobilinogen, Urine 0.2 0.2 - 1.0 mg/dL LAB URINALYSIS - AUTOMATED METHOD 06/06/2025 9:28 AM [facility] Bilirubin, Urine Negative Negative LAB URINALYSIS - AUTOMATED METHOD 06/06/2025 9:28 AM [facility] Blood, Urine Negative Negative LAB URINALYSIS - AUTOMATED METHOD 06/06/2025 9:28 AM [facility] RBC, Urine 2.5 0 - 4 /HPF LAB URINALYSIS - AUTOMATED METHOD 06/06/2025 9:28 AM [facility] WBC, Urine 4.6(H) 0 - 4 /HPF LAB URINALYSIS - AUTOMATED METHOD 06/06/2025 9:28 AM [facility] Squamous Epithelial, Urine >100(H) 0 - 60 /LPF LAB URINALYSIS - AUTOMATED METHOD 06/06/2025 9:28 AM [facility] Bacteria, Urine Few(A) Negative /HPF LAB URINALYSIS - AUTOMATED METHOD 06/06/2025 9:28 AM [facility] Hyaline Casts, Urine 3.2(H) 0 - 3 /LPF LAB URINALYSIS - AUTOMATED METHOD 06/06/2025 9:28 AM [facility] Urine Urine specimen obtained by clean catch procedure / Unknown Non-blood Collection / Unknown 06/06/2025 8:58 AM EDT 06/06/2025 9:12 AM EDT Carol GARCIA LAB URINE ORDERABLES Final Result Performing Organization Address [facility]/ZIP Co de Phone Number [facility] [address] [place] [address], [place] [phone] * Rios urine culture tube (06/06/2025 8:58 AM EDT) Pathologist [facility] Extra Tube Hold for add-ons. 06/06/2025 11:01 AM EDT [facility] Comment:Auto resulted. Urine Urine specimen obtained by clean catch procedure / Unknown Non-blood Collection / Unknown 06/06/2025 8:58 AM EDT 06/06/2025 9:10 AM EDT [facility] URINE ORDERABLES Final Result Performing Organization Address [facility] Co de Phone Number [facility] [address] [place] [address], [place] [phone] * Culture urine (06/06/2025 8:58 AM EDT) [facility] Culture, Urine 10,000-49,000 CFU/mL Mixed urogenital bola, no uropathogens present. Suggest repeat specimen if clinically indicated. 06/07/2025 10:20 AM EDT [facility] Urine Urine specimen obtained by clean catch procedure / Unknown Non-blood Collection / Unknown 06/06/2025 8:58 AM EDT 06/06/2025 9:28 AM EDT us Carol GARCIA LAB MICROBIOLOGY - GENERAL ORDERABLES Final Result Performing Organization Address [facility] Co de Phone Number [facility] [address] [place] [address], [place] [phone] * (ABNORMAL) Lipid panel with reflex to direct LDL (06/06/2025 8:48 AM EDT) Cholesterol 222(H) 0 - 200 mg/dL LAB CHEMISTRY METHOD 06/06/2025 10:38 AM EDT [facility] Triglycerides 85 0 - 150 mg/dL LAB CHEMISTRY METHOD 06/06/2025 10:38 AM [facility] HDL 78 >=40 mg/dL LAB [facility]STRY METHOD 06/06[facility]25 10:38 [facility] LDL Calculated 127(H) 0 - 100 mg/dL LAB CHEMISTRY METHOD 06/06/2025 10:38 [facility] Comment:Estimated LDL Calcul ated using equation: Total cholesterol - HDL cholesterol - (Triglycerides/5) VLDL Cholesterol Stephen 17 mg/dL LAB CHEMISTRY METHOD 06/06/2025 10:38 AM [facility] Non HDL Chol. (LDL+VLDL) 144 <145 mg/dL LAB CHEMISTRY METHOD 06/06/2025 10:38 AM [facility] Chol/HDL Ratio 2.8 0.0 - 4.4 LAB CHEMISTRY METHOD 06/06/2025 10:38 AM [facility] Blood Venous blood specimen / Unknown Venipuncture / Unknown 06/06/2025 8:48 AM EDT 06/06/2025 9:11 AM EDT Carol GARCIA LAB BLOOD ORDERABLES Final Result [facility] [address] [place] [address], * (ABNORMAL) Vitamin D 25 hydroxy (06/06/2025 8:48 AM EDT) [facility] Vit D, 25-Hydroxy 26.3(L) 30.0 - 80.0 ng/mL LAB CHEMISTRY METHOD 06/06/2025 11:25 AM [facility] Blood Venous blood specimen / Unknown Venipuncture / Unknown 06/06/2025 8:48 AM EDT 06/06/2025 9:11 AM EDT Carol GARCIA LAB BLOOD ORDERABLES Final Result [facility] [address] [place] [address], * (ABNORMAL) Complete blood count (06/06/2025 8:48 AM EDT) WBC 3.4(L) 4.8 - 10.8 K/mcL LAB HEMETOLOGY METHOD 06/06/2025 9:34 AM EDT [facility] RBC 4.80 3.80 - 4.80 M/mcL LAB HEMETOLOGY METHOD 06/06/2025 9:34 AM EDT [facility] Hemoglobin 14.4 11.5 - 16.0 g/dL LAB HEMETOLOGY METHOD 06/06/2025 9:34 AM EDT [facility] Hematocrit 43.3 35.0 - 47.0 % LAB HEMETOLOGY METHOD 06/06/2025 9:34 AM EDT [facility] MCV 91.0 79.0 - 98.0 FL LAB HEMETOLOGY METHOD 06/06/2025 9:34 [facility] MCH 30.3 27.0 - 32.0 pcg LAB HEMETOLOGY METHOD 06/06/2025 9:34 AM EDT [facility] MCHC 33.3 32.0 - 37.0 g/dL LAB HEMETOLOGY METHOD 06/06/2025 9:34 AM EDT [facility] RDW 12.6 11.0 - 15.0 % LAB HEMETOLOGY METHOD 06/06/2025 9:34 AM EDT [facility] Platelets 217 130 - 400 K/mcL LAB HEMETOLOGY METHOD 06/06/2025 9:34 AM EDT [facility] MPV 10.0 7.0 - 11.0 FL LAB HEMETOLOGY METHOD 06/06/2025 9:34 AM EDT [facility] NRBC 0.0 <1.0 % LAB HEMETOLOGY METHOD 06/06/2025 9:34 AM EDT [facility] NRBC Absolute 0.00 <0.10 K/mcL LAB HEMETOLOGY METHOD 06/06/2025 9:34 AM EDT [facility] Blood Venous blood specimen / Unknown Venipuncture / Unknown 06/06/2025 8:48 AM EDT 06/06/2025 9:14 AM EDT Carol GARCIA LAB BLOOD ORDERABLES Final Result Performing Organization Address City/[facility]/ZIP Co de Phone Number [facility] [address] [place] [address], * Thyroid stimulating hormone (06/06/2025 8:48 AM EDT) TSH 3.20 0.40 - 4.00 mcIU/mL LAB CHEMISTRY METHOD 06/06/2025 11:25 AM EDT [facility] Blood Venous blood specimen / Unknown Venipuncture / Unknown 06/06/2025 8:48 AM EDT 06/06/2025 9:11 AM EDT Carol GARCIA LAB BLOOD ORDERABLES Final Result [facility] [address] [place] [address], * Thyroxine free (06/06/2025 8:48 AM EDT) Free T4 1.27 0.70 - 1.80 ng/dL LAB CHEMISTRY METHOD 06/06/2025 11:25 AM EDT [facility] Blood Venous blood specimen / Unknown Venipuncture / Unknown 06/06/2025 8:48 AM EDT 06/06/2025 9:11 AM EDT us Carol GARCIA LAB BLOOD ORDERABLES Final Result [facility] [address] [place] [address], [place] [phone] * Magnesium (06/06/2025 8:48 AM EDT) Magnesium 2.4 1.9 - 2.6 mg/dL LAB CHEMISTRY METHOD 06/06/2025 10:13 AM EDT [facility] Blood Venous blood specimen / Unknown Venipuncture / Unknown 06/06/2025 8:48 AM EDT 06/06/2025 9:11 AM EDT Carol GARCIA LAB BLOOD ORDERABLES Final Result Performing Organization Address City/[facility]/ZIP Co de Phone Number [facility] [address] [place] [address], [place] [phone] * Hemoglobin A1c (06/06/2025 8:48 AM EDT) Hemoglobin A1C 5.5 <6.5 % LAB CHEMISTRY METHOD 06/06/2025 1:09 PM EDT [facility] Mean Bld Glu Estim. 111 mg/dL LAB CHEMISTRY METHOD 06/06/2025 1:09 PM EDT [facility] Blood Venous blood specimen / Unknown Venipuncture / Unknown 06/06/2025 8:48 AM EDT 06/06/2025 9:14 AM EDT Carol GARCIA LAB BLOOD ORDERABLES Final Result [facility] [address] [place] [address], [place] [phone] * Vitamin B12 (06/06/2025 8:48 AM EDT) [facility] Vitamin B-12 326 250 - 900 pcg/mL LAB CHEMISTRY METHOD 06/06/2025 10:38 AM [facility] Blood Venous blood specimen / Unknown Venipuncture / Unknown 06/06/2025 8:48 AM EDT 06/06/2025 9:11 AM EDT Carol GARCIA LAB BLOOD ORDERABLES Final Result [facility] [address] [place] [address], [place] [phone] * Comprehensive metabolic panel (06/06/2025 8:48 AM EDT) [facility] Sodium 141 133 - 145 mmol/L LAB CHEMISTRY METHOD 06/06/2025 10:38 AM [facility] Potassium 4.0 3.5 - 5.5 mmol/L LAB CHEMISTRY METHOD 06/06/2025 10:38 AM [facility] Chloride 107 96 - 110 mmol/L LAB CHEMISTRY METHOD 06/06/2025 10:38 AM [facility] CO2 28 21 - 32 mmol/L LAB CHEMISTRY METHOD 06/06/2025 10:38 AM [facility] Anion Gap 6 3 - 11 LAB CHEMISTRY METHOD 06/06/2025 10:38 AM [facility] Glucose 92 70 - 100 mg/dL LAB CHEMISTRY METHOD 06/06/2025 10:38 AM [facility] BUN 15 5 - 25 mg/dL LAB CHEMISTRY METHOD 06/06/2025 10:38 AM [facility] Creatinine 0.89 0.50 - 1.10 mg/dL LAB CHEMISTRY METHOD 06/06/2025 10:38 AM [facility] eGFR 70 >=60 mL/min/1. 73m2 LAB CHEMISTRY METHOD 06/06/2025 10:38 AM [facility] Comment:Calculation based on the Chronic Kidney Disease Epidemiology Collaboration (CKD-EPI) equation refit without adjustment for race. BUN/Creatinine Ratio 16.9 LAB CHEMISTRY METHOD 06/06/2025 10:38 AM [facility] Calcium 9.5 8.5 - 10.5 mg/dL LAB CHEMISTRY METHOD 06/06/2025 10:38 AM [facility] AST (SGOT) 17 10 - 42 unit/L LAB CHEMISTRY METHOD 06/06/2025 10:38 AM [facility] ALT (SGPT) 22 10 - 60 unit/L LAB CHEMISTRY METHOD 06/06/2025 10:38 AM [facility] Alkaline Phosphatase 51 42 - 121 unit/L LAB CHEMISTRY METHOD 06/06/2025 10:38 AM [facility] Total Protein 6.6 6.0 - 8.0 g/dL LAB CHEMISTRY METHOD 06/06/2025 10:38 AM [facility] Albumin 4.0 3.2 - 5.0 g/dL LAB CHEMISTRY METHOD 06/06/2025 10:38 AM [facility] Total Bilirubin 0.5 0.0 - 1.4 mg/dL LAB CHEMISTRY METHOD 06/06/2025 10:38 AM [facility] Blood Venous blood specimen / Unknown Venipuncture / Unknown 06/06/2025 8:48 AM EDT 06/06/2025 9:11 AM EDT us Carol GARCIA LAB BLOOD ORDERABLES Final Result [facility] [address] [place] [address], [place] [phone] * MG Mammo Digital Screening w Jareth bilat (02/28/2025 1:21 PM EDT) Anatomical Region Laterality Modality Breast Bilateral Mammography 03/01/2025 7:57 AM EDT Impressions 03/01/2025 8:07 AM EDT No mammographic evidence of malignancy. No suspicious interval change. A negative mammogram in the presence of a clinically suspicious palpable abnormality does not preclude the possibility of malignancy or alter the indications for biopsy. ASSESSMENT: BI-RADS 2: BENIGN RECOMMENDATION(S): 1: Routine screening mammogram BILATERAL in 1 year. [facility]amm[facility] location: [facility] [address], [address] -------- FINAL REPORT -------- Dictated By: Gregory Park Dictated Date: 03/01/2025 07:57 ET Assigned Physician: Gregory Park Reviewed and Electronically Signed By: Gregory Park Signed Date: 03/01/2025 08:07 ET Workstation ID: [id number] Transcribed By: Self Edit Transcribed Date: 03/01/2025 07:57 ET Narrative 03/01/2025 8:07 AM EDT EXAM: SCREENING MAMMOGRAPHY, BILATERAL HISTORY: SCREENING. Family history of breast cancer. COMPARISON: 10/13/23, 10/07/22, 09/05/21, 08/20/20 TECHNIQUE: Synthesized CC and MLO projections of each breast. Tomosynthesis of each breast in the CC and MLO projections. ADDITIONAL IMAGING: None Computer-aided detection was employed with the [employer] AI 3-D. TISSUE DENSITY: There are scattered areas of fibroglandular density. (BI-RADS category B) FINDINGS: RIGHT BREAST: No suspicious mass. No suspicious calcification. No distortion. No additional suspicious right breast findings LEFT BREAST: No suspicious mass. No suspicious calcification. No distortion. No definite change in a 0.3 cm oval mass in the outer left breast 8 cm from the nipple (). Procedure Note Gregory Park MD - 03/01/2025 EXAM: SCREENING MAMMOGRAPHY, BILATERAL HISTORY: SCREENING. Family history of breast cancer. COMPARISON: 10/13/23, 10/07/22, 09/05/21, 08/20/20 TECHNIQUE: Synthesized CC and MLO projections of each breast.Tomosynthesis of each breast in the CC and MLO projections. ADDITIONAL IMAGING: None Computer-aided detection was employed with the [employer] AI 3-D. TISSUE DENSITY: There are scattered areas of fibroglandular density.(BI-RADS category B) FINDINGS: RIGHT BREAST: No suspicious mass. No suspicious calcification. No distortion. Noadditional suspicious right breast findings LEFT BREAST: No suspicious mass. No suspicious calcification. No distortion. No definite change in a 0.3 cm oval mass in the outer left breast 8 cmfrom the nipple (). IMPRESSION: No mammographic evidence of malignancy. No suspicious interval change. A negative mammogram in the presence of a clinically suspicious palpableabnormality does not preclude the possibility of malignancy or alter theindications for biopsy. ASSESSMENT: BI-RADS 2: BENIGN RECOMMENDATION(S): 1: Routine screening mammogram BILATERAL in 1 year. Mamm[facility] location: [facility] at [address], [address] -------- FINAL REPORT -------- Dictated By: Gregory Park Dictated Date: 03/01/2025 07:57 ET Assigned Physician: Gregory Park Reviewed and Electronically Signed By: Gregory Park Signed Date: 03/01/2025 08:07 ET Workstation ID: [id number] Transcribed By: Self Edit Transcribed Date: 03/01/2025 07:57 ET us Self Referral S[facility] IMG BI PROCEDURES Final Resul t * COLONOSCOPY Anesthesia - MAC; [facility] ENDOSCOPY (11/17/2024 10:46 AM EST) Anatomical Region Laterality Modality Endoscopy 11/17/2024 10:2 4 AM EST Impressions 11/17/2024 10:47 AM EST - Normal mucosa in the entire examined colon. Biopsied. - Non-bleeding internal hemorrhoids. - The examination was otherwise normal on direct and retroflexion views. Recommendation: - Discharge patient to home. - Resume previous diet. - Continue present medications. - Await pathology results. - Repeat colonoscopy for surveillance based on pathology results. - Return to GI office as previously scheduled. Narrative 11/17/2024 10:47 AM EST [facility] GI Patient Name: Juan J Leon Procedure Date: 11/17/2024 10:24 AM Date of : 1955 Age: 69 Room: ROOM 16 Gender: Female Note Status: Finalized Attending MD: Haider Abarca MD, Procedure Date No Time: 11/17/2024 Procedure: Colonoscopy Indications: High risk colon cancer surveillance: Ulcerative pancolitis of 8 (or more) years duration Providers: Haider Abarca MD Referring MD: Haider Abarca MD Medicines: Monitored Anesthesia Care Complications: No immediate complications. Estimated Blood Loss: Estimated blood loss was minimal. Procedure: Pre-Anesthesia Assessment: - ASA Grade Assessment: II - A patient with mild systemic disease. - After reviewing the risks and benefits, the patient was deemed in satisfactory condition to undergo the procedure. After I obtained informed consent, the scope was passed under direct vision. Throughout the procedure, the patient's blood pressure, pulse, and oxygen saturations were monitored continuously.The Colonoscope was introduced through the anus and advanced to the cecum, identified by appendiceal orifice and ileocecal valve. The colonoscopy was performed without difficulty. The patient tolerated the procedure well. The quality of the bowel preparation was good. Findings: Normal mucosa was found in the entire colon. Biopsies were taken with a cold forceps for histology. Estimated blood loss was minimal. Non-bleeding internal hemorrhoids were found during retroflexion. The hemorrhoids were small. The exam was otherwise without abnormality on direct and retroflexion views. Procedure Code(s): --- Professional --- 23340, Colonoscopy, flexible; with biopsy, single or multiple Diagnosis Code(s): --- Professional --- K51.00, Ulcerative (chronic) pancolitis without complications CPT copyright 2020 [employer]. All rights reserved. The codes documented in this report are preliminary and upon supervisor paste plant review may be revised to meet current compliance requirements. Haider Abarca MD 11/17/2024 10:47:23 AM This report has been signed electronically.Haider Abarca MD Number of Addenda: 0 Note Initiated On: 11/17/2024 10:24 AM Scope In: Scope Out: Endoscopy Department at [facility] - [address] [place] [id number] Procedure Note Haider Abarca MD - 11/17/2024 [facility] GI Patient Name: Juan J Leon Procedure Date: 11/17/2024 10:24 AM Date of : 1955 Age: 69 Room: ROOM 16 Gender: Female Note Status: Finalized Attending MD: Haider Abarca MD, Procedure Date No Time: 11/17/2024 Procedure: Colonoscopy Indications: High risk colon cancer surveillance: Ulcerative pancolitis of 8 (or more) years duration Providers: Haider Abarca MD Referring MD: Haider Abarca MD Medicines: Monitored Anesthesia Care Complications: No immediate complications. Estimated Blood Loss: Estimated blood loss was minimal. Procedure: Pre-Anesthesia Assessment: - ASA Grade Assessment: II - A patient with mild systemic disease. - After reviewing the risks and benefits, thepatient was deemed in satisfactory condition to undergo the procedure. After I obtained informed consent, the scope was passed under direct vision. Throughout theprocedure, the patient's blood pressure, pulse, and oxygen saturations were monitored continuously.The Colonoscope was introduced through the anus and advanced to the cecum, identified by appendiceal orifice and ileocecal valve. The colonoscopy was performed without difficulty. The patient tolerated the procedure well. The quality of the bowel preparation was good. Findings: Normal mucosa was found in the entire colon.Biopsies were taken with a cold forceps for histology. Estimated blood loss was minimal. Non-bleeding internal hemorrhoids were found during retroflexion. The hemorrhoids were small. The exam was otherwise without abnormality ondirect and retroflexion views. Procedure Code(s): --- Professional --- 46845, Colonoscopy, flexible; with biopsy, singleor multiple Diagnosis Code(s): --- Professional --- K51.00, Ulcerative (chronic) pancolitis without complications CPT copyright 2020 [employer]. All rights reserved. The codes documented in this report are preliminary and upon supervisor paste plant reviewmay be revised to meet current compliance requirements. Haider Abarca MD 11/17/2024 10:47:23 AM This report has been signed electronically.Haider Abarca MD Number of Addenda: 0 Note Initiated On: 11/17/2024 10:24 AM Scope In: Scope Out: Endoscopy Department at [facility] - [address] [place] [id number] IMPRESSION: - Normal mucosa in the entire examined colon. Biopsied. - Non-bleeding internal hemorrhoids. - The examination was otherwise normal on directand retroflexion views. Recommendation: - Discharge patient to home. - Resume previous diet. - Continue present medications. - Await pathology results. - Repeat colonoscopy for surveillance based on pathology results. - Return to GI office as previously scheduled. us Haider Abarca MD GI~PROCEDURE ORDERABLES Final Result * SU DEXA AXIAL SKELETON (09/05/2021 3:17 PM EST) Anatomical Region Laterality Modality Mammography 09/05/2021 1:49 PM EST Narrative 09/05/2021 3:17 PM EST [facility] Diagnostic Imaging Department [address] [place] [id number] Patient: JUAN J LEON D.O.B./Age/Sex: 1955 - 66 - F Unit#: [id number] Location/Status: SPDIMA/REG CLI Mnemonic[facility] Ordering Physician: ISAC MAYNARD MD [facility] Dexa Axial Skeleton - 09/05/21 - [facility] Dexa Axial Skeleton INDICATION: POSTMENOPAUSAL Technique: Bone densitometry was performed utilizing dual energy x-ray absorptiometry (DEXA). The lumbar spine is evaluated in the AP projection from L1 through L4. The proximal femora are evaluated in the AP projection bilaterally. COMPARISON: 07/07/2019 FINDINGS: AP spine: Bone mineral density: 1.108 gm/cm2 T-score: -0.6 Femoral total (mean, bilateral): Bone mineral density: 1.032 gm/cm2 T-score: 0.2 IMPRESSION: Findings suggesting normal bone mineral density. Compared to the prior exam, no statistically significant interval change [id number] Dictating Physician: ALFRED ADAMS MD Electronically Signed by: ALFRED ADAMS MD Dic Date/Time: 09/05/211514 Sign date/Time: 09/05/211516 Procedure Note Alfred Adams MD - 09/10/2022 [facility] Diagnostic Imaging Department [address] [place] [address] Patient: JUAN J LEON./Age/Sex: 1955 - 66 - F Unit#: [id number] Location/Status: [facility]/REG CLI Mnemonic/[facility] Ordering Physician: ISAC MAYNARD MD [facility] Dexa Axial Skeleton - 09/05/21 [facility] Dexa Axial Skeleton INDICATION: POSTMENOPAUSAL Technique: Bone densitometry was performed utilizing dual energy x-ray absorptiometry (DEXA). The lumbar spine is evaluated in the AP projectionfrom L1 through L4. The proximal femora are evaluated in the AP projection bilaterally. COMPARISON: 07/07/2019 FINDINGS: AP spine: Bone mineral density: 1.108 gm/cm2 T-score: -0.6 Femoral total (mean, bilateral): Bone mineral density: 1.032 gm/cm2 T-score: 0.2 IMPRESSION: Findings suggesting normal bone mineral density. Compared to the prior exam, no statistically significant interval change [id number] Dictating Physician: ALFRED ADAMS MD Electronically Signed by: ALFRED ADAMS MD Dic Date/Time: 09/05/21 151 Sign date/Time: 09/05/211516 Isac Maynard MD IMG BI PROCEDURES Final Res ult from Last 3 Months or Most Recently Relevant to Health Maintenance Insurance [facility] Care Teams Talent Program Manager Relationship Specialty Start Date End Date Isac Maynard MD [address] [place] [id number] PCP - General Internal Medicine 09/29/24
== END 2025-06-22 09:54 | disposition home or self-care (01) ==
PROVIDERS: PCP Internal Medicine; Visit Provider Physician Assistant Medical
DX: M79.671 Pain in right foot (principal)

== ENCOUNTER 2025-06-22 08:54 | Outpatient (REF) | payer MEDICARE, SELFPAY ==
--- NOTE | ~2025-06-22 | XR_ITS ---
EXAMINATION: XR FOOT, RIGHT CLINICAL INFORMATION: M79.671 - Pain in right foot COMPARISON: None available. TECHNIQUE: AP, lateral, and oblique views of the right foot. FINDINGS: No acute cortical disruption. There is a medial deviation and likely flexed position of the fourth and fifth toes. Small plantar calcaneal spur. No lytic or blastic lesions. No joint effusion. No metallic or radiopaque foreign body. No subcutaneous emphysema. XR/XR foot RT min 3V IMPRESSION: Hammertoe deformities, fourth and fifth toes. Electronically signed by: Maksim Rizo MD 06/22/2025 09:41 AM EDT
== END 2025-06-22 08:55 | disposition home or self-care (01) ==
LOC: HO.HMGCX 08:54
PROVIDERS: Visit Provider Physician Assistant Medical
DX: M79.671 Pain in right foot (principal)
CPT/HCPCS: 73630; 99212

== ENCOUNTER → 2025-06-22 09:21 | Outpatient (BNV) | payer MEDICARE, SELFPAY | PROVIDERS: Visit Provider Radiology Diagnostic Radiology | DX: M20.41 Other hammer toe(s) (acquired), right foot (principal) | CPT/HCPCS: 73630 ==